=== PATIENT | male | born 1930 | race Caucasian/White ===

== ENCOUNTER 2019-06-10 20:37 | Observation (INO) | payer MEDICARE, BC ==
[~2019-06-10] VITALS: Ht 172.7 cm; Wt 79.0 kg
--- NOTE | 2019-06-10 20:45 | NUR ---
PT LUCRETIA AVILA FROM HOME FOR CHEST PAIN ONSET 194. DESCRIBES MID-STERNAL, PRESSURE, 6/10, NON-RADIATING. PT HAS HX OF CA WITH STENT PLACEMENT 2 MONTHS AGO, STATES IT FEELS SIMILAR. 12-LEAD DONE BY EMS UNREMARKABLE. PT WAS TREATED WITH 0.4MG SL NITRO & 324MG ASA DOMAIN ARCHITECT, WITH CHEST PAIN DECREASING TO 4/10 AFTER NITRO. VS PER EMS: HR 60 SR, BP 170/100, SPO2 100% ON RA, BS 145. PT WAS A DIVERT FROM [facility]. PT ARRIVES TO ED A&OX4, NO SIGNS OF DISTRESS. EKG DONE AT BS IMMEDIATELY, SHOWS SINUS UZAIR WITH T WAVE INVERSION. POC RV'WD WITH PT. AT BS.
--- NOTE | 2019-06-10 21:20 | NUR ---
REPORTED TO TERRELL KITCHEN.
[2019-06-10] MEDS ORDERED: PLEASE ENTER ALLERGIES MC SCH (21:30)
[2019-06-10] MEDS ORDERED: PLEASE ENTER WEIGHT MC SCH (21:30)
[2019-06-10] MEDS ORDERED: MORPHINE SULFATE 4 MG/ML, 1ML IVPush PRN (21:30)
[2019-06-10] MEDS ORDERED: ASPIRIN 81 MG TABLET CHEW PO ONE (21:30)
[2019-06-10 21:37] LABS: BASOPHILS # (AUTO) 0.03 x10^3/uL (0-0.1); BASOPHILS % (AUTO) 1 % (0-1); EOSINOPHILS % (AUTO) 14 % (1-7); LYMPHOCYTES # (AUTO) 0.75 x10^3/uL (1-3.4); LYMPHOCYTES % (AUTO) 13 % (22-44); MD NO; MEAN CORPUSCULAR HEMOGLOBIN 33.4 pg (27.5-34.5); MEAN CORPUSCULAR HGB CONC 33.4 g/dL (33.2-36.2); MEAN CORPUSCULAR VOLUME 99.9 fL (81-97); MEAN PLATELET VOLUME 9.4 fL (7.4-10.4); MONOCYTES # (AUTO) 0.74 x10^3/uL (0.2-0.8); MONOCYTES % (AUTO) 13 % (2-9); NEUTROPHILS % (AUTO) 60 % (42-75); PLATELET COUNT 150 x10^3/uL (130-400); RED BLOOD COUNT 3.39 x10^6/uL (4.38-5.82); RED CELL DISTRIBUTION WIDTH 15.7 % (9.4-14.8)
[2019-06-10] MEDS ORDERED: TERA5CAP3 PO (21:42)
[2019-06-10] MEDS ORDERED: LISI-167 PO (21:42)
[2019-06-10] MEDS ORDERED: ASPI-496 PO (21:42)
[2019-06-10] MEDS ORDERED: LEVO50TA5 PO (21:42)
[2019-06-10] MEDS ORDERED: CARV3.122 PO (21:42)
[2019-06-10] MEDS ORDERED: DUTA0.5C15 PO (21:42)
[2019-06-10] MEDS ORDERED: ATOR80TA PO (21:42)
[2019-06-10] MEDS ORDERED: FURO20TA3 PO (21:42)
[2019-06-10] MEDS ORDERED: TICA90TA PO (21:42)
[2019-06-10 21:47] LABS: ANION GAP 7 mmol/L (5-15); CHLORIDE 102 mmol/L (98-107); CREATININE 1.02 mg/dL (0.7-1.3)
--- NOTE | 2019-06-10 21:50 | NUR ---
PT RESTING ON HILARIO, STATES CHEST PAIN IS 3/10 AND REFUSING MORPHINE AT THIS TIME. PT AWARE HE IS GOING TO BE ADMITTED. VSS AND AT BEDSIDE.
[2019-06-10 21:51] LABS: TROPONIN I 0.019 ng/mL (0.000-0.045)
[2019-06-10] MEDS ORDERED: POTASSIUM CHLORIDE 20 MEQ TAB.ER.PRT PO ONE (23:00)
[2019-06-10] MEDS ORDERED: ACETAMINOPHEN 325 MG TABLET PO PRN (23:00)
[2019-06-10] MEDS ORDERED: BISACODYL 10 MG SUPP PR PRN (23:00)
[2019-06-10] MEDS ORDERED: TERAZOSIN 5MG CAPSULE PO SCH (23:00)
[2019-06-10] MEDS ORDERED: NITROGLYCERIN 0.4 MG BOTTLE (25 TABS) SL PRN (23:00)
[2019-06-10] MEDS ORDERED: ONDANSETRON 2MG/ML, 2ML IVPush PRN (23:00)
[2019-06-10] MEDS ORDERED: POLYETHYLENE GLYCOL 17 GM PACKET PO PRN (23:00)
[2019-06-10] MEDS ORDERED: hydrALAzine 20 MG/ML, 1ML IVPush PRN (23:00)
[2019-06-10] MEDS ORDERED: HYDROcodone/APAP 5/325 TABLET PO PRN (23:00)
[2019-06-10] MEDS ORDERED: DOCUSATE 100 MG CAPSULE PO PRN (23:00)
[2019-06-10] MEDS ORDERED: ATORVASTATIN 80 MG TABLET PO SCH (23:00)
[2019-06-10] MEDS ORDERED: morphine SULFATE 10 MG/ML, 1ML IVPush PRN (23:00)
[2019-06-10] MEDS ORDERED: PROMETHAZINE 25 MG/ML, 1ML IM PRN (23:00)
[2019-06-10] MEDS ORDERED: ONDANSETRON ODT 4 MG PO PRN (23:00)
[2019-06-10 23:13] VITALS: BP 150/89
[2019-06-10] MEDS: CARVEDILOL 3.125 MG TABLET PO SCH (23:19)
[2019-06-10 23:20] LABS: HEMOGLOBIN A1C 6.5 % (4.2-6.3)
[2019-06-10 23:22] LABS: FREE T4 (FREE THYROXINE) 1.19 ng/dL (0.76-1.46)
[2019-06-11] MEDS: TICAGRELOR 90 MG TABLET PO SCH ×2 (00:08→08:27)
[2019-06-11] MEDS: HEPARIN 5,000 UNITS/ML, 1ML SQ SCH ×3 (00:09→16:17)
[2019-06-11 00:31] VITALS: BP 153/66
[2019-06-11 01:25] LABS: TROPONIN I 0.025 ng/mL (0.000-0.045)
[2019-06-11 04:41] LABS: BASOPHILS # (AUTO) 0.02 x10^3/uL (0-0.1); BASOPHILS % (AUTO) 0 % (0-1); EOSINOPHILS # (AUTO) 0.63 x10^3/uL (0-0.4); EOSINOPHILS % (AUTO) 12 % (1-7); LYMPHOCYTES # (AUTO) 0.97 x10^3/uL (1-3.4); LYMPHOCYTES % (AUTO) 19 % (22-44); MD NO; MEAN CORPUSCULAR HEMOGLOBIN 33.2 pg (27.5-34.5); MEAN CORPUSCULAR VOLUME 100.6 fL (81-97); MEAN PLATELET VOLUME 9.8 fL (7.4-10.4); MONOCYTES # (AUTO) 0.69 x10^3/uL (0.2-0.8); MONOCYTES % (AUTO) 13 % (2-9); NEUTROPHILS % (AUTO) 56 % (42-75); PLATELET COUNT 146 x10^3/uL (130-400); RED CELL DISTRIBUTION WIDTH 15.9 % (9.4-14.8)
[2019-06-11 04:52] LABS: ALANINE AMINOTRANSFERASE 339 U/L (12-78); ALBUMIN 2.9 g/dL (3.4-5.0); ANION GAP 5 mmol/L (5-15); CALCIUM 8.8 mg/dL (8.5-10.1); CHLORIDE 105 mmol/L (98-107)
[2019-06-11 04:57] LABS: ALKALINE PHOSPHATASE 319 U/L (45-117); BILIRUBIN,TOTAL 1.2 mg/dL (0.2-1.0); CHOL/HDL RATIO 2.2; CHOLESTEROL, TOTAL 94 mg/dL (140-239); CREATININE 0.87 mg/dL (0.7-1.3); HDL CHOL % 45 % (26-37); HDL CHOLESTEROL (DIRECT) 42 mg/dL (40-60); LDL CHOLESTEROL,CALCULATED 43 mg/dL (54-169); TOTAL PROTEIN 5.8 g/dL (6.4-8.2); TRIGLYCERIDES 44 mg/dL (50-200); TROPONIN I 0.017 ng/mL (0.000-0.045); VLDL CHOLESTEROL 9 mg/dL (0-25)
[2019-06-11] MEDS ORDERED: ASPIRIN 325 MG TABLET EC PO SCH (06:00)
[2019-06-11 07:34] VITALS: BP 155/74
[2019-06-11] MEDS: CARVEDILOL 3.125 MG TABLET PO SCH (08:27)
[2019-06-11] MEDS ORDERED: ASPIRIN 81 MG TABLET EC PO SCH (09:00)
[2019-06-11] MEDS ORDERED: FUROSEMIDE 20 MG TABLET PO SCH (09:00)
[2019-06-11] MEDS ORDERED: LEVOTHYROXINE 50 MCG TABLET PO SCH (09:00)
[2019-06-11] MEDS ORDERED: LISINOPRIL 10 MG TABLET PO SCH (09:00)
[2019-06-11] MEDS ORDERED: AMLODIPINE 5 MG TABLET PO SCH (09:00)
[2019-06-11] MEDS ORDERED: DUTASTERIDE 0.5 MG CAPSULE PO SCH (09:00)
[2019-06-11 13:11] VITALS: BP 134/70
[2019-06-11] MEDS ORDERED: AMLO-150 PO (16:47)
[2019-06-11] MEDS ORDERED: NITR0.4T41 SL (16:47)
== END 2019-06-11 18:37 | disposition home or self-care (01) ==
LOC: ED 22:33 → EDIP 22:47 → 5SO 23:21
PROVIDERS: ADMIT Internal Medicine; ATTEND Family Medicine
DX: R07.9 Chest pain, unspecified (principal); E87.6 Hypokalemia; D53.9 Nutritional anemia, unspecified; E78.00 Pure hypercholesterolemia, unspecified; E78.5 Hyperlipidemia, unspecified; H35.30 Unspecified macular degeneration; I11.0 Hypertensive heart disease with heart failure; I50.42 Chronic combined systolic (congestive) and diastolic (congestive) heart failure; I48.91 Unspecified atrial fibrillation; I25.5 Ischemic cardiomyopathy; I25.10 Atherosclerotic heart disease of native coronary artery without angina pectoris; N40.0 Benign prostatic hyperplasia without lower urinary tract symptoms; E03.9 Hypothyroidism, unspecified; Z87.891 Personal history of nicotine dependence; Z79.899 Other long term (current) drug therapy
CPT/HCPCS: 36415; 71045; 80048; 80053; 80061; 82040; 83036; 83735; 84439; 84443; 84484; 85025; 93005; 93306; 96372; 99284; G0378; J1644